=== PATIENT | female | born 1995 | race Two or more races ===

== ENCOUNTER 2018-10-25 15:04 | Emergency (ER) | payer OTHER ==
[~2018-10-25] VITALS: Ht 170.2 cm; Wt 73.0 kg
== END 2018-10-25 17:07 | disposition home or self-care (01) ==
LOC: ER 15:04
DX: M94.0 Chondrocostal junction syndrome [Tietze] (principal)

== ENCOUNTER 2019-02-28 12:06 | Emergency (ER) | payer OTHER ==
[~2019-02-28] VITALS: Ht 170.2 cm; Wt 77.1 kg
== END 2019-02-28 16:25 | disposition home or self-care (01) ==
LOC: ER 12:06
DX: M62.838 Other muscle spasm (principal); M54.2 Cervicalgia; M94.0 Chondrocostal junction syndrome [Tietze]

== ENCOUNTER → 2019-05-24 | Emergency (ER) | payer OTHER ==
[~2019-05-24] VITALS: Ht 165.1 cm; Wt 80.7 kg
[~2019-05-24] MED LIST: KETO10TA2 PO; NORFLEX100MG PO
== END | disposition home or self-care (01) ==
LOC: ER 21:49
DX: M62.830 Muscle spasm of back (principal)

== ENCOUNTER 2020-04-22 21:37 | Emergency (ER) | payer OTHER ==
[~2020-04-22] VITALS: Ht 170.2 cm; Wt 73.5 kg
[2020-04-22] MEDS ORDERED: KETO10TA2 PO (22:30)
[2020-04-22] MEDS ORDERED: ORPHENADRINE C100 MG PO (22:30)
== END 2020-04-22 23:10 | disposition home or self-care (01) ==
LOC: ER 21:37
DX: M54.5 Low back pain (principal)

== ENCOUNTER 2020-07-05 16:12 | Emergency (ER) | payer OTHER ==
[~2020-07-05] VITALS: Ht 170.2 cm; Wt 72.6 kg
[~2020-07-05 16:12] MED LIST changes: +ORPHENADRINE C100 MG PO
== END 2020-07-05 18:46 | disposition home or self-care (01) ==
LOC: ER 16:12
DX: N39.0 Urinary tract infection, site not specified (principal); B96.29 Other Escherichia coli [E. coli] as the cause of diseases classified elsewhere

== ENCOUNTER 2020-12-05 12:59 | Emergency (ER) | payer OTHER ==
[~2020-12-05] VITALS: Ht 170.2 cm; Wt 72.6 kg
[2020-12-05] MEDS ORDERED: OMEPRAZOLE MAGN20 MG PO (17:21)
[2020-12-05] MEDS ORDERED: PEPCID AC20 MG PO (17:21)
== END 2020-12-05 17:39 | disposition home or self-care (01) ==
LOC: ER 12:59
DX: K29.00 Acute gastritis without bleeding (principal); K21.9 Gastro-esophageal reflux disease without esophagitis

== ENCOUNTER 2020-12-24 09:32 | Emergency (ER) | payer OTHER ==
[~2020-12-24] VITALS: Ht 170.2 cm; Wt 72.6 kg
[~2020-12-24 09:32] MED LIST changes: +OMEPRAZOLE MAGN20 MG PO; +PEPCID AC20 MG PO
== END 2020-12-24 12:40 | disposition home or self-care (01) ==
LOC: ER 09:32
DX: J06.9 Acute upper respiratory infection, unspecified (principal)

== ENCOUNTER → 2021-03-25 | Emergency (ER) | payer OTHER ==
[~2021-03-25] VITALS: Ht 170.2 cm; Wt 72.6 kg
== END | disposition home or self-care (01) ==
LOC: ER 01:07
DX: M94.0 Chondrocostal junction syndrome [Tietze] (principal)

== ENCOUNTER 2021-06-17 09:22 | Emergency (ER) | payer OTHER ==
[~2021-06-17] VITALS: Ht 170.2 cm; Wt 72.6 kg
[~2021-06-17 09:22] MED LIST changes: +ACETAMINOPHEN650 M2
== END 2021-06-17 11:41 | disposition home or self-care (01) ==
LOC: ER 09:22
DX: J02.9 Acute pharyngitis, unspecified (principal); J04.0 Acute laryngitis

== ENCOUNTER 2021-09-12 16:51 | Emergency (ER) | payer OTHER ==
[~2021-09-12] VITALS: Ht 170.2 cm; Wt 72.6 kg
== END 2021-09-12 17:54 | disposition home or self-care (01) ==
LOC: ER 16:51
DX: A49.3 Mycoplasma infection, unspecified site (principal)

== ENCOUNTER 2023-06-13 23:45 | Emergency (ER) | payer OTHER ==
[~2023-06-13] VITALS: Ht 170.2 cm; Wt 72.6 kg
== END 2023-06-14 02:32 | disposition home or self-care (01) ==
LOC: ER 23:45
DX: M62.830 Muscle spasm of back (principal)

== ENCOUNTER 2023-12-26 23:32 | Emergency (ER) | payer OTHER ==
[~2023-12-26] VITALS: Ht 170.2 cm; Wt 71.7 kg
[2023-12-26] MEDS ORDERED: PEPCID AC20 MG PO (23:44)
[2023-12-27] MEDS ORDERED: CEFAZOLIN SODIUM 1,000 MG VIAL IM STA (02:26)
== END 2023-12-27 02:30 | disposition home or self-care (01) ==
LOC: ER 23:33
DX: R30.0 Dysuria (principal)

== ENCOUNTER 2024-04-25 11:34 | Emergency (ER) | payer OTHER ==
[~2024-04-25] VITALS: Ht 170.2 cm; Wt 71.7 kg
[2024-04-25] MEDS ORDERED: KETOROLAC TROMETHAMINE 30 MG VIAL IM STA (14:52)
[2024-04-25] MEDS ORDERED: CEFTRIAXONE SODIUM 1,000 MG VIAL IM STA (14:52)
== END 2024-04-25 15:50 | disposition home or self-care (01) ==
LOC: ER 11:36
DX: J32.9 Chronic sinusitis, unspecified (principal); Z20.822 Contact with and (suspected) exposure to COVID-19

== ENCOUNTER 2024-10-29 00:23 | Emergency (ER) | payer OTHER ==
[~2024-10-29] VITALS: Ht 167.6 cm; Wt 72.6 kg
[2024-10-29] MEDS ORDERED: ACETAMINOPHEN 500 MG GEL..CAP PO STA (02:54)
[2024-10-29] MEDS ORDERED: ACETAMINOPHEN 500 MG GEL..CAP PO ONE (02:56)
[2024-10-29 03:20] LABS: BASO % 0.6 % (0.1-1.2); EOS # 0.25 (0.04-0.54); EOS % 2.8 % (0.7-7.0); HEMATOCRIT 36.4 % (34.1-44.9); HEMOGLOBIN 11.8 g/dL (11.2-15.7); LYMPH % 26.7 % (19.3-53.1); MEAN CORPUSCULAR HEMOGLOBIN 25.8 pg (25.6-32.2); MONO # 0.81 (0.24-0.82); NEUT # 5.48 (1.56-6.13); NEUT % 60.8 % (34.0-71.1); PLATELET COUNT 359 K/uL (163-369); RED BLOOD COUNT 4.57 M/uL (3.93-5.22); RED CELL DISTRIBUTION WIDTH 14.6 % (11.6-14.4)
[2024-10-29 04:48] LABS: COVID-19 AG NEGATIVE (NEGATIVE); INFLUENZA A AG NEGATIVE (NEGATIVE)
[2024-10-29 04:49] LABS: INFLUENZA B AG POSITIVE (NEGATIVE)
[2024-10-29] MEDS ORDERED: OSEL75CA PO (04:57)
[2024-10-29] MEDS ORDERED: FAMOTIDINE40 MG PO (04:57)
== END 2024-10-29 05:05 ==
LOC: ER 00:57
PROVIDERS: General Practice
DX: J10.1 Influenza due to other identified influenza virus with other respiratory manifestations (principal); Z20.822 Contact with and (suspected) exposure to COVID-19